=== PATIENT | female | born 1935 | race Caucasian/White ===

== ENCOUNTER 2019-12-19 10:44 | Inpatient (IN) | payer OTHER ==
[~2019-12-19] VITALS: Ht 157.5 cm; Wt 79.0 kg
[2019-12-19 11:15] LABS: BASOPHILS ABSOLUTE AUTO 0.05 K/mm3 (0.00-0.23); BASOPHILS PERCENT AUTO 0 % (0-2); EOSINOPHILS ABSOLUTE AUTO 0.08 K/mm3 (0.00-0.68); EOSINOPHILS PERCENT AUTO 1 % (0-6); Hematocrit 48.2 % (33.0-51.0); IMMATURE GRAN ABSOLUTE AUTO 0.06 K/mm3 (0.00-0.10); IMMATURE GRAN PERCENT AUTO 1 % (0-1); LYMPHOCYTES ABSOLUTE AUTO 2.09 K/mm3 (0.84-5.20); LYMPHOCYTES PERCENT AUTO 17 % (21-46); MONOCYTES ABSOLUTE AUTO 1.01 K/mm3 (0.16-1.47); MONOCYTES PERCENT AUTO 8 % (4-13); Mean Corpuscular HGB Conc 33.2 g/dL (31.5-36.5); Mean Corpuscular Volume 88 fL (80-100); Mean Platelet Volume 9.9 fL (9.1-12.4); NEUTROPHILS ABSOLUTE AUTO 8.93 K/mm3 (1.96-9.15); NEUTROPHILS PERCENT AUTO 73 % (41-73); Platelet Count 244 K/mm3 (150-400); RDW Coefficient Variation 11.9 % (11.7-14.2); RDW Standard Deviation 38.1 fL (35.1-46.3); Red Blood Cell Count 5.51 M/mm3 (3.80-5.20); White Blood Cell Count 12.22 K/mm3 (4.00-11.30)
[2019-12-19 11:29] LABS: Alanine Aminotransfer (ALT/SGP 17 U/L (12-78); Albumin, Blood 3.4 g/dL (3.4-5.0); Alk Phos 78 U/L (50-136); Anion Gap 5 mmol/L (6-16); Aspartate Aminotrans (AST/SGOT 17 U/L (12-37); Bilirubin, Total 0.7 mg/dL (0.1-1.0); Blood Urea Nitrogen 13 mg/dL (8-24); Bun/Creatinine Ratio 19.3 (12.0-20.0); CO2, Blood 29 mmol/L (21-32); Calcium, Blood 8.6 mg/dL (8.5-10.1); Chloride, Blood 99 mmol/L (98-108); Creatinine, Blood 0.67 mg/dL (0.40-1.00); Globulin, Blood 3.3 g/dL (2.2-4.0); Glomerular Filtration Rate >60 (60-); Glucose, Blood 117 mg/dL (70-99); Potassium, Blood 3.9 mmol/L (3.5-5.5); Sodium, Blood 133 mmol/L (136-145); Total Protein, Blood 6.7 g/dL (6.4-8.2)
[2019-12-19 11:30] LABS: Troponin I <0.015 ng/mL (0.000-0.040)
[2019-12-19 13:17] LABS: Adenovirus Not Detected (NOT DETECT); Coronavirus 229E Not Detected (NOT DETECT); Coronavirus HKU1 Not Detected (NOT DETECT); Coronavirus NL63 Not Detected (NOT DETECT); Coronavirus OC43 Not Detected (NOT DETECT)
[2019-12-19 13:18] LABS: Bordetella pertussis Not Detected (NOT DETECT); Chlamydophila pneumoniae Not Detected (NOT DETECT); Human Metapneumovirus Not Detected (NOT DETECT); Human Rhinovirus/Enterovirus Not Detected (NOT DETECT); Influenza A/2009-H1 Not Detected (NOT DETECT); Influenza A/H1 Not Detected (NOT DETECT); Influenza A/H3 Not Detected (NOT DETECT); Influenza B Not Detected (NOT DETECT); Mycoplasma pneumoniae Not Detected (NOT DETECT); Parainfluenza Virus 1 Not Detected (NOT DETECT); Parainfluenza Virus 2 Not Detected (NOT DETECT); Parainfluenza Virus 3 Not Detected (NOT DETECT); Parainfluenza Virus 4 Not Detected (NOT DETECT); Respiratory Syncytial Virus Not Detected (NOT DETECT)
[2019-12-19 15:01] LABS: PCO2 Arterial 53.5 mmHg (35-45); PO2 Arterial 53.1 mmHg (80-100); pH Blood Arterial 7.37 (7.35-7.45)
--- NOTE | 2019-12-19 20:10 | NUR ---
ASSUMED CARE. PAT IS AOX3, COOPERATIVE. GOT UP TO BATHROOM WITH SBA. VOIDED CLEAR YELLOW URINE. DENIED ANY DISCOMFORT WHILE URINATING. LUNG SOUNDS CLEAR IN UPPER LOBES DIMINISHED IN BASES, BUT DID HAVE SOME EXPIRTORY WHEEZING. COUGH IS NON-PRODUCTIVE AT THIS TIME. STATES THE OXYGEN DOES HELP HER BREATH A LITTLE MORE AT EASE. DYSPNEA ON EXERTION, RECOVER IS LESS THEN A MIN. NO PAIN NOTED. VS WITH ELEVATION IN BP DUE TO HER JUST GETTING UP TO THE BATHROOM. STATES SHE CAN RUN ON THE HIGH SIDE. WILL CONTINUE TO MONITOR. CALL LIGHT IN REACH.
--- NOTE | 2019-12-19 20:51 | NUR ---
Primary Care At 2050, this COMPUTER BUILDER rounded on 356. The patient was in no distress and was sittting up watching T.V. I asked her if she is okay and she responded with, "Everything is okay". During this shift nurse is primary care for this patient.
--- NOTE | 2019-12-19 21:59 | NUR ---
RT IN ROOM TO GIVE BREATHING TREATMENT. STATES PATIENT IS FEELING NAUSUATED. INFORMED PATIENT WILL BRING IN AFTER TREATMENT IS COMPLETED DUE TO WAIT TIME WITH R/O CORVID PATIENTS.
--- NOTE | 2019-12-19 22:05 | NUR ---
SPOKE TO SHRAVAN CARTAGENA, PAT'S POA. PAT GIVE PERMISSION. SHRAVAN STATES LUX HAS BEEN HAVING ISSUES OF SOB FOR A WHILE AND NEEDING OXYGEN BUT IS AFRAID OF HAVING IT. SHE FEELS ONCE SOMEONE GOES ON IT THEN THEY NEVER GET OFF. SHE JUST RECENTLY LOST HER AND SHRAVAN THINKS SHE IS VERY DEPRESSED. 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 SHRAVAN STATES LUX LIVES IN A 5TH WHEEL WITH STAIRS OUTSIDE AND INSIDE. SHE DOES HAVE HARD TIME GETTING UP THEM. SHE IS SUPPOSE TO MOVE INTO A HOUSE NEXT TO HER DAUGHTER BUT IT IS NOT READY YET AND THEY DON'T KNOW WHEN IT WILL BE. SHE IS REQUESTING FOR US TO DO A OXYGEN NEED EVALUATION, ALONG WITH FURNACE FITTER FOR HELP, AND POSSIBLE HOME HEALTH ON DISCHARGE. WILL PASS ON TO DAY SHIFT IN MORNING.
--- NOTE | 2019-12-19 23:30 | NUR ---
GAVE ZOFRAN EARLIER. SHE STATES IT HELPED FOR A WHILE BUT NOW SHE IS STILL FEELING IT THERE. GAVE SALTINES TO SEE IF IT HELPED. INSTRUCTED ABOUT SOLUMEDROL AND SIDE EFFECTS. ENCOURAGED HER TO CALL IF NAUSEA GETS TO BAD OR CRACKERS DONT HELP.
--- NOTE | 2019-12-20 02:55 | NUR ---
PATIENT SLEEPING WITH NO SIGNS OF DISTRESS, AWAKENS EASILY TO SOUND. CALL LIGHT IN REACH.
--- NOTE | 2019-12-20 04:49 | NUR ---
SHIFT SUMMARY: PAT'S RESPIRTORY STATUS HAS REMAINED STABLE TONIGHT. SATS HAVE REMAINED IN THE 90'S WITH 2 LITERS OF O2 VIA NC. SOB NOTED WITH EXERTION ONLY. COUGH IS NON-PRODUCTIVE. VS SHOW HYPERTENSION, RUNNING 160'S SBP AND 90-100'S FOR DBP. SHE REPORTS THIS HAS BEEN THE OCCATION LATLEY. ELISABETH ALSO CALLED THIS SHIFT ASKING FOR HOME OXYGEN EVAL SHE IS ALWAYS SOB AT HOME. SHE ALSO REPORTED DIFFICULTY WITH TAKING THE STAIRS, AND POSSIBLE NEED FOR HOME HEALTH ON DC. PAT AGREED WITH THIS INFORMATION. PAT REMAINED PAIN FREE. ENHANCED ISOLATION STILL IN PLACE. MEDS PER EMAR. NO ACUTE CHANGES THIS SHIFT. WILL REPORT OFF.
[2019-12-20 05:00] LABS: BASOPHILS PERCENT AUTO 0 % (0-2); EOSINOPHILS PERCENT AUTO 0 % (0-6); Hematocrit 45.8 % (33.0-51.0); Hemoglobin 14.8 g/dL (11.5-16.0); IMMATURE GRAN ABSOLUTE AUTO 0.04 K/mm3 (0.00-0.10); IMMATURE GRAN PERCENT AUTO 1 % (0-1); LYMPHOCYTES ABSOLUTE AUTO 0.41 K/mm3 (0.84-5.20); LYMPHOCYTES PERCENT AUTO 6 % (21-46); MONOCYTES ABSOLUTE AUTO 0.04 K/mm3 (0.16-1.47); MONOCYTES PERCENT AUTO 1 % (4-13); Mean Corpuscular HGB 28.4 pg (26.0-34.0); Mean Corpuscular HGB Conc 32.3 g/dL (31.5-36.5); Mean Corpuscular Volume 88 fL (80-100); Mean Platelet Volume 10.5 fL (9.1-12.4); NEUTROPHILS ABSOLUTE AUTO 6.29 K/mm3 (1.96-9.15); NEUTROPHILS PERCENT AUTO 93 % (41-73); Platelet Count 206 K/mm3 (150-400); RDW Coefficient Variation 11.9 % (11.7-14.2); RDW Standard Deviation 38.1 fL (35.1-46.3); Red Blood Cell Count 5.22 M/mm3 (3.80-5.20); White Blood Cell Count 6.78 K/mm3 (4.00-11.30)
[2019-12-20 05:17] LABS: Anion Gap 6 mmol/L (6-16); Blood Urea Nitrogen 20 mg/dL (8-24); Bun/Creatinine Ratio 27.7 (12.0-20.0); CO2, Blood 28 mmol/L (21-32); Calcium, Blood 8.9 mg/dL (8.5-10.1); Chloride, Blood 99 mmol/L (98-108); Creatinine, Blood 0.72 mg/dL (0.40-1.00); Glomerular Filtration Rate >60 (60-); Glucose, Blood 161 mg/dL (70-99); Magnesium, Blood 2.2 mg/dL (1.6-2.4); Potassium, Blood 4.2 mmol/L (3.5-5.5); Sodium, Blood 133 mmol/L (136-145)
--- NOTE | 2019-12-20 11:43 | NUR ---
Patient is sitting up in bed and alert. Patient tells me about her 's 5 days ago, about his life, about his laugh about his careers and about how he was as a father and (of 63 yrs). Patient talks about how she is doing in the grief process and about how her grown kids are handling things. I listen empathically, normalize patient's experience, reinforce helpful attitudes and practices and provide grief support. Patient responds well and shows signs of catharsis and increased peace. I will continue to remain available to patient and family.
[2019-12-20 18:48] LABS: BASOPHILS ABSOLUTE AUTO 0.01 K/mm3 (0.00-0.23); BASOPHILS PERCENT AUTO 0 % (0-2); EOSINOPHILS PERCENT AUTO 0 % (0-6); Hematocrit 46.3 % (33.0-51.0); Hemoglobin 15.5 g/dL (11.5-16.0); IMMATURE GRAN ABSOLUTE AUTO 0.07 K/mm3 (0.00-0.10); IMMATURE GRAN PERCENT AUTO 1 % (0-1); LYMPHOCYTES ABSOLUTE AUTO 0.49 K/mm3 (0.84-5.20); LYMPHOCYTES PERCENT AUTO 4 % (21-46); MONOCYTES ABSOLUTE AUTO 0.33 K/mm3 (0.16-1.47); MONOCYTES PERCENT AUTO 3 % (4-13); Mean Corpuscular HGB 29.4 pg (26.0-34.0); Mean Corpuscular HGB Conc 33.5 g/dL (31.5-36.5); Mean Corpuscular Volume 88 fL (80-100); Mean Platelet Volume 9.8 fL (9.1-12.4); NEUTROPHILS ABSOLUTE AUTO 12.32 K/mm3 (1.96-9.15); NEUTROPHILS PERCENT AUTO 93 % (41-73); Platelet Count 302 K/mm3 (150-400); RDW Coefficient Variation 11.9 % (11.7-14.2); RDW Standard Deviation 38.4 fL (35.1-46.3); Red Blood Cell Count 5.28 M/mm3 (3.80-5.20); White Blood Cell Count 13.22 K/mm3 (4.00-11.30)
--- NOTE | 2019-12-20 18:54 | NUR ---
PATIENT BEGAN C/O PAIN BETWEEN SHOULDER BLADES AND REPORTS INCREASED SOB. HR IN THE 140'S. DR. THORPE NOTIFED AND ORDERS RECEIVED FRO STAT TROPONO, LACTIC ACID, CMP, AND CBX. STAT ORDERS ALSO FOR A DOSE OG NITOGLYCERIN AND 324MG ASPIRIN. CHEST X-RAY AND EKG COMPLETED. PATIENT STATES PAIN IMPROVED WITH NITRO. IR METOPROLOL GIVEN TO CONTROL HR. PATIENT GIVEN A DOSE OF ATIVAN PER MD ORDER AND IS NOW CALM AND RESTING. CONITUES TO REPORT SOME MILD 3/10 CP, BUT REFUSES ANOTHER DOSE OF NITRO. AWAITING LAB RESULTS AND CHEST X-RAY REPORT. B/P STABLE AT 118/71. HR 137 ON TELEMETRY.
[2019-12-20 19:12] LABS: Alanine Aminotransfer (ALT/SGP 12 U/L (12-78); Albumin, Blood 3.5 g/dL (3.4-5.0); Albumin/Globulin Ratio 0.9 (0.8-1.8); Alk Phos 64 U/L (50-136); Anion Gap 8 mmol/L (6-16); Aspartate Aminotrans (AST/SGOT 14 U/L (12-37); Bilirubin, Total 0.4 mg/dL (0.1-1.0); Blood Urea Nitrogen 24 mg/dL (8-24); Bun/Creatinine Ratio 25.7 (12.0-20.0); CO2, Blood 25 mmol/L (21-32); Calcium, Blood 9.6 mg/dL (8.5-10.1); Chloride, Blood 97 mmol/L (98-108); Creatinine, Blood 0.93 mg/dL (0.40-1.00); Globulin, Blood 3.7 g/dL (2.2-4.0); Glomerular Filtration Rate >60 (60-); Glucose, Blood 154 mg/dL (70-99); Potassium, Blood 3.9 mmol/L (3.5-5.5); Sodium, Blood 130 mmol/L (136-145); Total Protein, Blood 7.2 g/dL (6.4-8.2); Troponin I 0.059 ng/mL (0.000-0.040)
--- NOTE | 2019-12-20 19:40 | NUR ---
ASSISTING YOEL LUNA WITH PATIENT. CALLED SHRAVAN HER POA. INFORMED HER OF THE SITUATION AND THAT SHE WILL BE TRANSFERRING TO PCU 7. SHE STATES SHE WILL CALL THE FAMILY. RECHECK OF VITALS SHOWED HER BP DOWN TO NORMAL LIMITS BUT HER HEART RATE IS STILL TACHYCARDIC RUNNING IN 130. SHE DID WAKE UP FOR A SECOND, INFORMED HER THAT WE ARE TRANSFERRING HER TO PCU, DUE TO HER LABS NOT BEING GOOD. SHE STATES SHE IS NOT FEELING WELL.
--- NOTE | 2019-12-20 20:55 | NUR ---
PAT IS RESTING IN ROOM, DOES AWAKEN WHEN SPOKEN TO BUT IS VERY TIRED. HR STILL RUNNING 120-130'S ON MONITOR. BLOOD PRESSURE IS STAYING DOWN IN THE 130-140'S RANGE. SHE DENIES ANY CURRENT CHEST PAIN. JUST STATES SHE DOES NOT FEEL GOOD. NOTIABLE SWELLING IN BLE. LUNG SOUNDS DIMINISHED WITH SLIGHT WHEEZE. SOB NOTED, BUT SATS ABOVE 90'S ON 3 LITERS. DECREASED DOWN TO 2 LITERS. AWAITING TO CALL REPORT TO PCU FOR TRANSFER.
--- NOTE | 2019-12-20 21:38 | NUR ---
NO CHANGE IN VITALS. REPORT CALLED TO PCU NURSE. WHILE ON PHONE WITH THE NURSE, OVERHEARD PAT TALKING TO SOMEONE IN THE ROOM. IT SOUNDED LIKE SHE WAS TALKING TO HER BELATED . STATING "I HEAR YOU HONEY, COME HERE." THERE WAS NO ONE IN THE ROOM. WENT TO ROOM AFTER AND SHE WAS PASSED OUT. NOT SURE IF SHE WAS TALKING IN HER SLEEP. WILL GET READY FOR TRANSFER.
--- NOTE | 2019-12-20 21:45 | NUR ---
PATIENT WAS AWAKE AND TALKING, BACK TO HER ALERT AND ORIENTED SELF. DID TALK ABOUT HER MISSING HER BUT STATED SHE IS NOT READY TILL SHE GETS THINGS FIXED WITH HER KIDS. ENCOURAGED HER TO CONTINUE TO TALK TO SPIRITUAL CARE. PATIENT TRANSFERRED TO PCU VIA WHEELCHAIR.
[2019-12-20 22:26] LABS: Source, Urine Clean Catch
[2019-12-20 22:29] LABS: Bilirubin, Urine Neg (Neg); Blood, Urine Neg (Neg); Glucose Qualitative, Urine Neg (Neg); Ketones, Urine Neg (Neg); Leukocyte Esterase, Urine 2+ (Neg); Nitrite, Urine Neg (Neg); Protein, Urine 1+ (Neg); Specific Gravity, Urine 1.015 (1.003-1.022); Urobilinogen, Urine NORM (Normal)
[2019-12-20 22:30] LABS: Appearance, Urine Clear (Clear); Color, Urine Yellow (P-Yellow)
[2019-12-20 22:37] LABS: Bacteria Mod /hpf; Hyaline Casts 25-50 /lpf (0-2); Red Blood Cells, Urine 0-2 /hpf (0-2); Squamous Epithelial Cells Few /hpf (Few)
--- NOTE | 2019-12-20 22:50 | NUR ---
ASSUMED CARE OF PATIENT AT APPROXIMATELY 2114 FROM OLIVIA Sanon RN. PATIENT ARRIVED TO UNIT VIA STRETCHER; SBA FROM MEDICAL TO PCU STRETCHER. PATIENT ALERT AND ORIENTED X4; DEPRESSED; RECENTLY LOST SPOUSE. PATIENT DENIES PAIN, NUMBNESS, TINGLING, DIZZINESS OR NAUSEA. NS AT 500ML/HR; SECOND BAG STARTED AFTER PER ORDER THEN 75ML/HR; LACTIC ACID DOWN TO 3.3. PATIENT SBA TO BEDSIDE COMMODE; NEEDED ASSISTANCE WITH ОЛЕГ CARE; WEARS PADS FOR INCONTINENCE AT TIMES; UA SENT. IV AZITHROMYCIN ORDRED; ELSA Fuentes RN WAS CALLING RHEA PEREZ; ASKED HER TO VERIFY PATIENT HAD PO THIS AM AND IF THEY WANTED IV GIVEN WELL; ORDERS NOT GIVE IV. NSR ON TELE; OXYGEN SATURATION ABOVE 90% ON 2LPM VIA NC. PATIENT CURRENTLY RESTING IN BED; CALL LIGHT IN REACH; BED IN LOWEST POSISTION; BED ALARM ON; WILL CONTINUE TO MONITOR AND ASSESS UNTIL END OF SHIFT.
--- NOTE | 2019-12-20 23:09 | NUR ---
PATIENT HAD 3.9 SEC PAUSE; ASYMPTOMATIC; BP STABLE; PATIENT WAS SLEEPING; REPORTS HE HAD PAUSES BEFORE. CARDIZEM GTT TITRATED DOWN TO 5ML/HR; AVERAGE HEART RATE LOW 100'S. WILL CONTINUE TO MONITOR AND ASSESS UNTIL END OF SHIFT.
[2019-12-21 00:46] LABS: BASOPHILS ABSOLUTE AUTO 0.02 K/mm3 (0.00-0.23); BASOPHILS PERCENT AUTO 0 % (0-2); EOSINOPHILS ABSOLUTE AUTO 0.01 K/mm3 (0.00-0.68); EOSINOPHILS PERCENT AUTO 0 % (0-6); Hematocrit 42.8 % (33.0-51.0); Hemoglobin 14.1 g/dL (11.5-16.0); IMMATURE GRAN ABSOLUTE AUTO 0.13 K/mm3 (0.00-0.10); IMMATURE GRAN PERCENT AUTO 1 % (0-1); LYMPHOCYTES ABSOLUTE AUTO 0.73 K/mm3 (0.84-5.20); LYMPHOCYTES PERCENT AUTO 4 % (21-46); MONOCYTES ABSOLUTE AUTO 0.41 K/mm3 (0.16-1.47); MONOCYTES PERCENT AUTO 3 % (4-13); Mean Corpuscular HGB 29.2 pg (26.0-34.0); Mean Corpuscular HGB Conc 32.9 g/dL (31.5-36.5); Mean Corpuscular Volume 89 fL (80-100); Mean Platelet Volume 9.6 fL (9.1-12.4); NEUTROPHILS ABSOLUTE AUTO 15.14 K/mm3 (1.96-9.15); NEUTROPHILS PERCENT AUTO 92 % (41-73); Platelet Count 240 K/mm3 (150-400); RDW Standard Deviation 38.9 fL (35.1-46.3); Red Blood Cell Count 4.83 M/mm3 (3.80-5.20); White Blood Cell Count 16.44 K/mm3 (4.00-11.30)
[2019-12-21 01:00] LABS: Bun/Creatinine Ratio 24.6 (12.0-20.0); Calcium, Blood 8.3 mg/dL (8.5-10.1); Creatinine, Blood 0.98 mg/dL (0.40-1.00); Potassium, Blood 4.7 mmol/L (3.5-5.5)
--- NOTE | 2019-12-21 06:57 | NUR ---
PATIENT SLEPT ABOUT NINE HOURS; IMPULSIVE; DOESNT USE CALL LIGHT; PULLED TWO IVS; THIRD PLACED. LACTIC DOWN TO 2.2; NS AT 75ML/HR. NO OTHER ACUTE CHANGES TO REPORT. FORGETFUL. WILL CONTINUE TO MONITOR AND ASSESS UNTIL END OF SHIFT.
--- NOTE | 2019-12-21 07:41 | NUR ---
ASSUMED PATIENT CARE. PATIENT RESTING COMFORTABLY IN BED, NO SIGNS OF ACUTE DISTRESS, WCTM.
--- NOTE | 2019-12-21 13:29 | NUR ---
Spiritual care visit conducted. Patient tells me about the events that happened just prior to her move to PCU. She talks about the emotional ride that it was for her but she did sleep very well last night. Patient shares about her family unit complications, about her and about her current support system. Patient is very talkative and very positive. She will talk about incredibly sad thoughts but balance them out with what is good about it. Some of this maybe self-protection but some of this is the kind of healthy self talk she will need going forward. I listen empathically and provide grief support, companionship and prayer. Patient responds well and shows signs of an elevated mood. I will continue to remain available to patient and family.
--- NOTE | 2019-12-21 18:53 | NUR ---
NO ACUTE EVENTS THIS SHIFT. PATIENT CONTINUED ON PO AND IV ABX. UA PENDING, POSSIBLE UTI. PATIENT DENIED CHEST PAIN/PRESSURE THIS SHIFT. NO WHEEZES NOTED THIS SHIFT, LUNG SOUNDS DIMINISHED T/0. IV FLUIDS DC'd THIS EVENING. PLAN IS TO CONTINUE TO TREAT FOR SEPSIS AND SUPPORT IMPROVEMENT IN RESPIRATORY FUNCTION.
--- NOTE | 2019-12-21 19:29 | NUR ---
RELINQUISHED PATIENT CARE.
--- NOTE | 2019-12-21 19:43 | NUR ---
UPDATE PATIENT REFUSING BLOOD PRESSURE MEDICATION AT THIS TIME STATING, "IT MADE ME FEEL FUNNY LAST TIME I HAD." PATIENT FEELING ANXIOUS AND SHORT OF BREATH AT THIS TIME. PATIENT HAS AGREED TO HAVE BLOOD PRESSURE RECHEKED ONCE SHE'S FEELING LESS ANXIOUS AND SHORT OF BREATH.
--- NOTE | 2019-12-22 00:21 | NUR ---
UPDATE NURSE PRACTIONER WANDA NOTIFIED OF PATIENT'S ELEVATED BLOOD PRESSURE AND PATIENT'S REFUSAL OF THE IV BLOOD PRESSURE MEDICATIONS. PATIENT ALSO REQUESTING SOMETHING TO HELP HER SLEEP. AN ORDER FOR BENADRYL OBTAINED FOR SLEEP. NURSE PRACTIONER WANDA STATED TO SIMPLY WATCH PATIENT'S BLOOD PRESSURE FOR NOW.
[2019-12-22 03:34] LABS: BASOPHILS ABSOLUTE AUTO 0.02 K/mm3 (0.00-0.23); BASOPHILS PERCENT AUTO 0 % (0-2); EOSINOPHILS PERCENT AUTO 0 % (0-6); Hematocrit 45.2 % (33.0-51.0); Hemoglobin 14.8 g/dL (11.5-16.0); IMMATURE GRAN ABSOLUTE AUTO 0.11 K/mm3 (0.00-0.10); IMMATURE GRAN PERCENT AUTO 1 % (0-1); LYMPHOCYTES ABSOLUTE AUTO 0.55 K/mm3 (0.84-5.20); LYMPHOCYTES PERCENT AUTO 3 % (21-46); MONOCYTES ABSOLUTE AUTO 0.46 K/mm3 (0.16-1.47); MONOCYTES PERCENT AUTO 3 % (4-13); Mean Corpuscular HGB 28.8 pg (26.0-34.0); Mean Corpuscular HGB Conc 32.7 g/dL (31.5-36.5); Mean Corpuscular Volume 88 fL (80-100); Mean Platelet Volume 9.9 fL (9.1-12.4); NEUTROPHILS ABSOLUTE AUTO 16.13 K/mm3 (1.96-9.15); NEUTROPHILS PERCENT AUTO 93 % (41-73); Platelet Count 296 K/mm3 (150-400); RDW Coefficient Variation 12.1 % (11.7-14.2); RDW Standard Deviation 39.5 fL (35.1-46.3); Red Blood Cell Count 5.13 M/mm3 (3.80-5.20); White Blood Cell Count 17.27 K/mm3 (4.00-11.30)
[2019-12-22 03:49] LABS: Anion Gap 5 mmol/L (6-16); Blood Urea Nitrogen 28 mg/dL (8-24); Bun/Creatinine Ratio 32.3 (12.0-20.0); CO2, Blood 28 mmol/L (21-32); Calcium, Blood 8.6 mg/dL (8.5-10.1); Chloride, Blood 101 mmol/L (98-108); Creatinine, Blood 0.87 mg/dL (0.40-1.00); Glomerular Filtration Rate >60 (60-); Glucose, Blood 144 mg/dL (70-99); Potassium, Blood 5.1 mmol/L (3.5-5.5); Sodium, Blood 134 mmol/L (136-145)
--- NOTE | 2019-12-22 04:31 | NUR ---
UPDATE LAB NOTIFIED STAFF THAT COVID RESULTS WERE NEGATIVE.
--- NOTE | 2019-12-22 04:46 | NUR ---
UPDATE PATIENT REPORTS FEELING VERY TIRED. PATIENT FINALLY IS ALLOWING STAFF TO PROVID IV BLOOD PRESSURE MEDICATIONS. PATIENT REPORTS SHE WAS HURTING ALL OVER BUT SHE IS FEELING BETTER NOW. HOWEVER, PATIENT DENIES HAVING ANY CHEST PAIN AT THIS TIME.
--- NOTE | 2019-12-22 05:35 | NUR ---
UPDATE EKG OBTAINED DUE TO PATIENT COMPLAINING OF SOB AND PAIN, "EVERYWHERE." NITRO GIVEN WITH MINIMAL RESULTS. PATIENT REPORTS, "I CAN'T TELL." WHEN ASKED IF SHE IS FEELING ANY BETTER. CHARGE NURSE PENELOPE GARCIA AND IN ROOM HELPING TO ASSESS PATIENT. RESPIRTORY THERAPIST ANNIKA IN ROOM ASSESSING PATIENT. PATIENT SITTING AT THE EDGE OF THE BED AND KEEPS STATING, "I HURT SO BAD." BUT PATIENT IS UNABLE TO EXPLAIN PAIN ANY FURTHER.
--- NOTE | 2019-12-22 05:52 | NUR ---
UPDATE PATIENT APPEARS MUCH MORE RELAXED AFTER BREATHING TREATMENTS. PATIENT NOW LAYING IN BED AND APPEARS TO BE FALLING ASLEEP. WILL CONTINUE TO MONITOR.
--- NOTE | 2019-12-22 06:52 | NUR ---
SHIFT SUMMARY PATIENT HAS APPEARED TO BE SLEEPING WELL HIS MORNING SINCE SHORTLY AFTER BREATHING TREATMENTS WERE GIVEN THIS MORNING. PATIENT CURRENTLY APPEARS TO BE COMFORTABLE AND SLEEPING IN BED, BEDSIDE REPORT GIVEN TO ONCOMING RN.
--- NOTE | 2019-12-22 08:48 | NUR ---
ASSUMED CARE - PCU DAYSHIFT PATIENT ORIENTED TO SELF BUT CONFUSED TO LOCATION AND SITUATION. PATIENT REORIENTED TO SITUATION AND LOCATION. PATIENT HAVING MOMENTS OF SELF CONFUSION SAY 'RAJI IS MY ' - AND THE PATIENT IS RAJI. PATIENT JUST LOST HER SPOUSE LAST WEEK HERE IN THE ER TO STROKE UNEXPECTEDLY. RESP LABORED AND UNEVEN AT REST; BIOX REMAINS 90-94% ON 3 LPM NC. LUNG SOUND COARSE TO WHEEZE. PATIENT EDUCATED TO COUGH AND DEEP BREATH. PATIENT SBA TO BEDSIDE COMMODE - TOELRATED WELL. CALL LIGHT AND BED ALARM.
--- NOTE | 2019-12-22 19:16 | NUR ---
PCU DAYSHIFT SUMMARY PATIENT ALERT AND ORIENTED T/O SHIFT AFTER INITIAL CONFUSION THIS AM (POSSIBLY RELATED TO MEDICATIONS). PATIENT DENIES ANY PAIN OR CHEST PRESSURE T/O SHIFT. RESP E/U AT REST BUT BREATHING BECOMES LABORED WITH ANXIETY - PATIENT ANXIOUS X2 THIS SHIFT - RELIEVED WITH NITRO AND BREATHING TREATMENTS. NOTIFIED MD SALMERON OF INCREASED TROPONIN AND ECHO RESULTS. CARDIOLOGY CONSULT CALLED - TANYA TO SEE PATIENT AND PATIENT TO HAVE [facility] SCAN TOMORROW WITH NO FURTHER ORDERS GIVEN. PATIENT ON 2-3 LPM NC. SBA TO COMMODE. CALL LIGHT W/I REACH AND BED ALARM ON. REPORT TO NOC SHIFT JEREMY ALFRED.
--- NOTE | 2019-12-23 05:40 | NUR ---
SHIFT SUMMARY PATIENT PLEASENT AND COOPERATIVE THROUGHOUT THE NIGHT. PATIENT SLIGHTLY ANXIOUS BUT HAS NOT HAD ANY EPISODES OF SEVERE ANXIETY WITH SHORTNESS OF BREATH TONIGHT. PATIENT APPEARED TO NAP ON AND OFF THROUGHOUT MOST OF THE NIGHT. VITAL SIGNS CHARTED. HIGH BLOOD PRESSURE TREATED PER ORDERS. WILL CONTINUE TO MONITOR PATIENT AND REPORT TO ONCOMING RN.
[2019-12-23 08:43] LABS: BASOPHILS ABSOLUTE AUTO 0.01 K/mm3 (0.00-0.23); BASOPHILS PERCENT AUTO 0 % (0-2); EOSINOPHILS PERCENT AUTO 0 % (0-6); Hematocrit 44.3 % (33.0-51.0); Hemoglobin 14.4 g/dL (11.5-16.0); IMMATURE GRAN ABSOLUTE AUTO 0.07 K/mm3 (0.00-0.10); IMMATURE GRAN PERCENT AUTO 1 % (0-1); LYMPHOCYTES PERCENT AUTO 7 % (21-46); MONOCYTES ABSOLUTE AUTO 0.98 K/mm3 (0.16-1.47); MONOCYTES PERCENT AUTO 8 % (4-13); Mean Corpuscular HGB 28.9 pg (26.0-34.0); Mean Corpuscular HGB Conc 32.5 g/dL (31.5-36.5); Mean Corpuscular Volume 89 fL (80-100); Mean Platelet Volume 9.7 fL (9.1-12.4); NEUTROPHILS ABSOLUTE AUTO 10.02 K/mm3 (1.96-9.15); NEUTROPHILS PERCENT AUTO 84 % (41-73); Platelet Count 289 K/mm3 (150-400); RDW Coefficient Variation 12.4 % (11.7-14.2); RDW Standard Deviation 40.4 fL (35.1-46.3); Red Blood Cell Count 4.98 M/mm3 (3.80-5.20); White Blood Cell Count 11.88 K/mm3 (4.00-11.30)
[2019-12-23 08:56] LABS: CHOL/HDL RATIO 2.4; Cholesterol 178 mg/dL (50-200); HDL Cholesterol 75 mg/dL (>39); LDL/HDL RATIO 1.2; Low Density Lipoprotein Chol 89 mg/dL (0-110); Magnesium, Blood 2.3 mg/dL (1.6-2.4); Triglycerides 69 mg/dL (30-160); Very Low Density Lipoprot Chol 13 mg/dL (6-32)
[2019-12-23 09:01] LABS: Alanine Aminotransfer (ALT/SGP 18 U/L (12-78); Alk Phos 66 U/L (50-136); Anion Gap 5 mmol/L (6-16); Aspartate Aminotrans (AST/SGOT 16 U/L (12-37); Bilirubin, Total 0.2 mg/dL (0.1-1.0); Blood Urea Nitrogen 28 mg/dL (8-24); Bun/Creatinine Ratio 36.8 (12.0-20.0); CO2, Blood 29 mmol/L (21-32); CPK Creatine Kinase 74 U/L (26-193); Calcium, Blood 8.6 mg/dL (8.5-10.1); Chloride, Blood 100 mmol/L (98-108); Creatinine, Blood 0.76 mg/dL (0.40-1.00); Glomerular Filtration Rate >60 (60-); Glucose, Blood 113 mg/dL (70-99); Potassium, Blood 5.1 mmol/L (3.5-5.5); Sodium, Blood 134 mmol/L (136-145)
--- NOTE | 2019-12-23 11:36 | NUR ---
SPOKE WITH PT'S KWAME CHENEY, UPDATED ON PT'S STATUS.
--- NOTE | 2019-12-23 18:17 | NUR ---
Initial spiritual care note: Mrs. Jordan told me about the very recent of her after he had a stroke. He in this facility. She was not with him "because it was too hard to see him that way, and he was already gone." He from massive stroke. She agress that this illness may have been exacerbated by grief. Her dtrs have been trying to get her to move in with one of them. She agrees this is a good idea. She is not fearful of and has a beleif in an afterlife. She is non-denominational. Mrs. Jordan responded well to emotional affirmation and gentle bereavement rehab/pre vocational counselor/education. I provided my contact information for rehab/pre vocational counselor and support in the future if she desired. [employer] will remain available.
--- NOTE | 2019-12-23 18:51 | NUR ---
SHIFT SUMMARY. A&OX4, PLEASANT AND COOPERATIVE WITH CARE, ASSIST TO BSC. PT CONTINUES WITH 2L O2 NC, REPORTS MILD DYSPNEA WITH EXERTION, RECOVERS QUICKLY. PT PAINFUL THIS MORNING 10/10, GENERALIZED ACHEING INCLUDING H/A, PT UNABLE TO LOCALIZE PAIN. DR. SALMERON NOTFIED, PT STARTED ON TRAMODOL WITH GOOD EFFECT. PT REPORTED PAIN WAS TOLERABLE THE REMAINING OF THE SHIFT. PT DENIES N/V. PT WITH IMPROVED MOOD THIS AFTERNOON. PT DID NOT TOLERATE LEXISCAN, PROCEDURE CANCELLED. PT CONTINUES TO BE HYPERTENSIVE.
--- NOTE | 2019-12-24 05:49 | NUR ---
SHIFT SUMMARY NO ACUTE CHANGES NOTED THROUGH THE NIGHT. PT C/O ONE EPISODE OF CHEST DISCOMFORT THROUGH THE NIGHT AFTER GETTING UP TO THE BATHROOM, NO EVENTS RECORDED ON TELE MONITOR, PT WAS RELIEVED AFTER RESTING AND 1 NITRO TABLET PER REQUEST. BP REMAINS ELEVATED. GENERALIZED PAIN MEDICATED WITH PO ULTRAM PER EMAR. O2 VIA NC @ 2 L. PT'S NITANIKA CHENEY WAS UPDATED VIA TELEPHONE PER PT REQUEST. CALL LIGHT IN REACH. [facility]
--- NOTE | 2019-12-24 18:16 | NUR ---
SHIFT SUMMARY NO ACUTE CHANGES THROUGHOUT SHIFT. PT REMAINED ALERT & ORIENTED, COOPERATIVE W/ CARE. PT SLEPT FOR MOST OF THE DAY, BUT DID HAVE SOME PERIODS OF INCREASED ANXIETY. REMAINS ON 2L O2 VIA NC, PULSE OX >90%. PT STILL W/ SOB ON MINIMAL EXERTION, BUT RECOVERS QUICKLY. PT C/O GENERALIZED PAIN, BUT DENIED NEED FOR PAIN MEDS WHEN OFFERED, STATES PAIN IS TOLERABLE. PT DENIED ANY C/O CHEST PAIN/PRESSURE THIS SHIFT. HTN STILL PRESENT W/ BP AVERAGING IN THE 160'S. PT CURRENTLY RESTING IN BED, LOOKS OVERALL UNCOMFORTABLE, BUT STATES SHE HAS NO NEEDS AT THIS TIME. STATUS CHANGED TODAY TO MED W/ TELE. BED LOCKED & IN LOWEST POSITION, CALL MILIAN W/ IN REACH, BED ALARM ON FOR PT SAFETY. WILL CONTINUE TO MONITOR UNTIL END OF SHIFT.
--- NOTE | 2019-12-25 06:26 | NUR ---
SHIFT SUMMARY PT HAS BEEN SLEEPY & WITHDRAWN THROUGH THE NIGHT. SHE STATES SHE DID NOT HAVE A GOOD DAY AND STATES SHE DOES NOT KNOW IF SHE "FEELS BETTER OR NOT". PT WAS ENC TO VOICE ANY CONCERNS BUT SHE DID NOT. HOSPITALIST WAS NOTIFIED OF ELEVATED BP AFTER 1 DOSE OF IV LOPRESSOR, HYDRALIZINE WAS ORDERED & GIVEN. O2 REMAINS @ 2.5 L VIA NC, LUNGS ARE DIMINISHED THROUGH OUT. CALL LIGHT IN REACH, WCTM
--- NOTE | 2019-12-25 12:38 | NUR ---
TRANSFER NOTE PT REMAINED ALERT & ORIENTED THROUGHOUT SHIFT, BUT IS VERY DOWN & DEPRESSED TODAY. PT STATES, "I'M OVER ALL OF THIS. I CAN'T TELL YOU HOW DEPRESSED I AM." DR. VILLAFANA WAS IN EARLIER TO SPEAK W/ PT & IS AWARE OF MENTAL STATE. PALLIATIVE CARE IS CONSULTED; THIS RN SPOKE W/ LEVI FROM PALLIATIVE & UPDATED HER ON PT'S SITUATION, STATES SHE WILL TRY TO COME SEE PT TODAY. BP HAS REMAINED ELEVATED OVERNIGHT & THROUGHOUT SHIFT; MD CHANGED AROUND PO MEDICATIONS THIS MORNING, BUT NO IMPROVEMENT. IV HYDRALAZINE WAS ADMINISTERED; MOST RECENT BP READING 172/92. IV LOPRESSOR WAS GIVEN PRIOR TO PT TRANSFER. CLARIFIED W/ DR. VILLAFANA IF HE WOULD LIKE TO KEEP PT MED/TELE STATUS OR CHANGE TO PCU; MD STATES OKAY FOR PT TO STAY MED/TELE STATUS EVEN W/ CONTINUED HTN. PULSE OX HAS REMAINED > 92% ON O2 VIA NC @ 2 LPM. PT STILL W/ SOB UPON MINIMAL EXERTION. REPORT WAS CALLED TO JEREMY QUINTANA ON SURGICAL FLOOR. PT WAS TRANSPORTED OFF UNIT W/ ALL BELONGINGS TO RM 226. PT'S NIECE SHRAVAN WAS UPDATED ON PT'S CONDITION & TRANSFER.
--- NOTE | 2019-12-25 12:41 | NUR ---
TRANSFER PCU TRANSFER TO 226. PT ALERT AND ORIENTED, BUT SEEMS DEPRESSED. PT REPORTS RECENTLY . PALLIATIVE CARE NOTIFIED BY ASSISTANT COUNTY ATTORNEY TO COME VISIT PT TODAY. PT REPORTS SHE "ALWAYS" HAS SHORTNESS OF BREATH AND THAT IT WORSENS WITH EXERTION. CURRENTLY ON 2L VIA NC. PT UP WITH 1 MIN SBA TO BSC. PT WAS MODERATELY DISTRESSED AND SOB, BUT QUICKLY RECOVERED WITH FOCUSED AND DEEP BREATHING. PT IS SITTING IN TRIPOD POSITION IN BED WHICH SHE REPORTS IS THE MOST COMFORTABLE POSITION FOR HER CURRENTLY. TELE IN PLACE RUNNING SR. IV IS SL. ORIENTED TO ROOM AND UNIT. PT USES CALL LIGHT APPROPRIATELY AND CALL LIGHT WITHIN REACH.
--- NOTE | 2019-12-25 16:14 | NUR ---
SHIFT SUMMARY NO ACUTE CHANGES SINCE ARRIVING TO UNIT. PT STILL HYPERTENSIVE. GIVING PO MEDS, HYDRALAZINE, AND LOPRESSOR PER ORDERS. ON 2L VIA NC. 1 MIN SBA TO BSC. MODERATE SOB WITH EXERTION. USES CALL LIGHT APPROPRIATELY.
--- NOTE | 2019-12-26 05:50 | NUR ---
SHIFT SUMMARY PT RESTED INFREQUENTLY T/O NIGHT. AAOX4/ANXIOUS AT TIMES. PT DENIES DISCOMFORT/NAUSEA THIS SHIFT. LUNG SOUNDS DIMINISHED WITH FINE CRACKLES IN BASES. 3L VIA NC AT THIS TIME. INCREASED SOB WHEN UP TO BSC. ANXIETY DECREASED WITH 1MG IV ATIVAN. ELEVATED BP CONTINUES. NO ACUTE CHANGES OVER NIGHT. PT CURRENTLY RESTING IN BED WITH CALL LIGHT IN REACH.
[2019-12-26 08:23] LABS: Hematocrit 40.9 % (33.0-51.0); Hemoglobin 14.1 g/dL (11.5-16.0)
[2019-12-26 08:38] LABS: Anion Gap 6 mmol/L (6-16); Blood Urea Nitrogen 26 mg/dL (8-24); Bun/Creatinine Ratio 59.4 (12.0-20.0); CO2, Blood 33 mmol/L (21-32); Calcium, Blood 8.3 mg/dL (8.5-10.1); Chloride, Blood 86 mmol/L (98-108); Creatinine, Blood 0.44 mg/dL (0.40-1.00); Glomerular Filtration Rate >60 (60-); Glucose, Blood 119 mg/dL (70-99); Potassium, Blood 3.9 mmol/L (3.5-5.5); Sodium, Blood 125 mmol/L (136-145)
[2019-12-26 12:03] LABS: Osmolality, Urine 834 mos/kg (15-1400)
[2019-12-26 13:00] LABS: Sodium, Urine, Random 39 mmol/L (20-110)
--- NOTE | 2019-12-26 16:20 | NUR ---
OT ENTERED ROOM TO FIND PT TALKING/CONFUSED. VSS. PT KEEPING EYES CLOSED, REFUSING TO WORK W/OT. DIFFICULT TO UNDERSTAND, HAVING DIFFICULTY FOLLOWING DIRECTIONS. STATED DID NOT KNOW WHERE SHE WAS, STATED VERY TIRED. REPORTED COLD, PROVIDED WARM BLANKET. OT TRANSFERRED PT BACK TO BED, BED ALARM TO SET TO MEDIUM SENSITIVITY. VSS.
--- NOTE | 2019-12-26 16:36 | NUR ---
DISCUSSED CHANGE IN MENTATION W/DR VILLAFANA. ORDERS FORTHCOMING.
[2019-12-26 17:26] LABS: Base Excess Venous 9.7 mmol/L; Bicarbonate Venous 31.4 mmol/L (24.0-30.0); PO2 Venous 82.9 mmHg (38-42); pH Blood Venous 7.39 (7.34-7.37)
--- NOTE | 2019-12-26 18:13 | NUR ---
SUMMARY PT WAS COOPERATIVE AND ALERT FIRST HALF THE SHIFT. IN THE AFTERNOON, PT BECAME VERY LETHARGIC, COULDNT STATE WHERE SHE WAS, COULDNT WORK W/OT, UNABLE TO STATE DATE OF . NOTIFIED DR VILLAFANA AND VBG WAS OBTAINED. THIS EVENING, PT IS SLIGHTLY MORE ALERT, SPOKE TO FRIEND ON PHONE AND TOOK COREG PER ORDERS. SITTING IN TRIPOD POSITION IN BED. BED ALARM ON. REPORTED VBG TO DR VILLAFANA; NO NEW ORDERS AT THIS TIME. CALL LIGHT IN REACH.
--- NOTE | 2019-12-26 21:30 | NUR ---
SPOKE TO SHRAVAN, PT'S POA AND UPDATE GIVEN. SHRAVAN SPOKE ABOUT PT GOING TO LIVE IN AN APARTMENT AFTER D/C FROM HOSPITAL. SHE STATED THAT IT WAS ARRANGED THAT PT'S DAUGHTER WAS TO MOVE IN WITH HER AND HELP HER OUT AND THAT SHE WILL BE PLACED ON HOSPICE. DENIES FURTHER NEEDS OR WANTS AT THIS TIME. SAFETY MEASURES IN PLACE. WILL CONTINUE TO MONITOR.
--- NOTE | 2019-12-27 04:44 | NUR ---
SHIFT SUMMARY SITTING UP IN BED WHILE WATCHING TV. ASKED NURSING TO PLUG CELL PHONE INTO COOLER CONVEYOR LOADER. RESTED IN TRIPOD POSITION ENTIRE SHIFT, REFUSED OFFERS TO REPOSITION. STATES THAT SHE IS COMFORTABLE AT THIS TIME. IS STILL AAO X3, NO CONFUSION NOTED THIS SHIFT. DENIES FURTHER NEEDS OR WANTS AT THIS TIME. SAFETY MEASURES IN PLACE. WILL GIVE HAND OFF TO ONCOMING SHIFT USING SBAR DURING BEDSIDE REPORT.
[2019-12-27 05:08] LABS: Anion Gap 5 mmol/L (6-16); Blood Urea Nitrogen 27 mg/dL (8-24); Bun/Creatinine Ratio 56.1 (12.0-20.0); CO2, Blood 35 mmol/L (21-32); Calcium, Blood 8.2 mg/dL (8.5-10.1); Chloride, Blood 85 mmol/L (98-108); Creatinine, Blood 0.48 mg/dL (0.40-1.00); Glomerular Filtration Rate >60 (60-); Glucose, Blood 112 mg/dL (70-99); Potassium, Blood 3.8 mmol/L (3.5-5.5); Sodium, Blood 125 mmol/L (136-145)
[2019-12-27 05:12] LABS: Thyroid Stimulating Hormone 0.414 uIU/mL (0.360-4.800)
--- NOTE | 2019-12-27 10:44 | NUR ---
Met with health care marketing specialist and then with tammie. Pt up in chair, moderate affect. pt is known to this video games storywriter from discussing end of life care with her for her . Pt ate about 25% Affect is anxious and respirations are slightly labored with accessory use and guarding. pt denies headache or ringinging in ears no stomitsis noted denies any difficulty swallowing. denies chest pain or aching or sorness to back joints and neck. no nausea or consitation. pt feels anxious. Slow careful conversation about care. pt states family is helping her with plan and hospice is coming to see her. We reviewed hospice care and how it could help her. Reviewed that if she improved she could come off hospice. She is flat and apathetic and distruaght. Her known history has been of very limited activity and her and family made most of her decisions. Review of pt notes and nursing notes pt kps score is 30%. Review of cardiac notes. Spoke with Crystal her family memeber and retired nurse. She is not POA. She is the family consultant and patients children rely on her knowledge to help with plan of care. They plan on having margarita francis sign POA for financials and medical so she can set her mother up in an apartment near them and take turns living with her. They are colaborative in their decision making for medical care. Daughter will be in today to sign POA and get notary. Revied with health care marketing specialist to get hospice referal update on who is available. Pt may not need to transition to comfort care as an inpatient. Will review with physician to see if we can optimize carediac function and care while here. She would benefit from some very low dose roxinol for air hunger and burder of ventilation. Review of plan with Crystal and she agrees. She feels if she worsens comfort care would be good. Will meet with daughter today and update hospitalist and request meds. Suggest change ativan to 12 hours and add minimal dose roxinaol for air hunger. Will attemt polst when family arrives.
--- NOTE | 2019-12-27 11:09 | NUR ---
PT VERY ANXIOUS. ASKED FOR ANXIETY MEDS. ATTEMPTED TO TALK TO PT TO CALM DOWN AND REQUESTED RT TO ADMINISTER INHALER FOR PRN SOB. PT REFUSED INHALER, STATING NEEDED SOMETHING FOR ANXIETY. ADMINISTERED 0.25 MG IV ATIVAN PER CLINICAL JUDGMENT. PLAN IN PLACE TO SIGN LEGAL DOCUMENTS WITH FAMILY MEMBER AT 12:30.
--- NOTE | 2019-12-27 11:50 | NUR ---
PT REPORTED FEELING DISTRESSED ATTEMPTED TO COMFORT AND REASSURE. PT WANTED FRIEND, SHRAVAN, TO BE CALLED AND INFORMED HOW PT FELT. UPDATED SHRAVAN PER PT'S REQUEST. PT SITTING UP IN CHAIR. CALL LIGHT IN REACH. CHAIR ALARM ON.
--- NOTE | 2019-12-27 12:35 | NUR ---
pt with daughter having productive conversation. notary in to help sign POA.
--- NOTE | 2019-12-27 14:39 | NUR ---
Review of orders with nursing. Met with daughter and did polst. pt is DNR with limited treatment. We agreed on limited to allow care for her needs while in hospital. Advised we can change to comfort only or hospice can. Pt very fatigued after encounter with daughter and more short of breath . nursing gave prn meds. Advised daughter plan is home with hospice. We also discussed that although she is not showing signs of transtion or being emeinent she is grieving and distraught and she may progress and change. Daughter thinks she is doing that now and is going to advise family of her changes. The hope is to get her to her new home and have family near her.
--- NOTE | 2019-12-27 17:24 | NUR ---
SUMMARY PT'S DAUGHTER AT BEDSIDE. PT SIGNED PAPERS TO MAKE DAUGHTER POA. PLAN TO DC TO HOSPICE. MEDICATED ONCE DURING SHIFT FOR ANXIETY. MEDICATED ONCE PER ORDERS FOR PAIN/AIR HUNGER. PT WEAK, TWO PERSON TRANSFER. CURRENTLY SLEEPING IN BED. PT FREQUENTLY SITS IN TRIPOD POSITION FOR COMFORT. CALL LIGHT IN REACH.
--- NOTE | 2019-12-27 18:50 | NUR ---
PT SITTING FORWARD IN BED. APPEARED SOB. DROWSY AND NOT ABLE TO SIT UP AND TAKE PO PAIN MEDS SAFELY. ADMINISTERED ROXANOL PER ORDERS FOR AIR HUNGER.
--- NOTE | 2019-12-27 23:00 | NUR ---
RECEIVED HAND OFF FROM Charlotte ANN RN USING SBAR. LEANING FORWARD INTO A PILLOW WHILE IN TRIPOD POSITION WITH EYES CLOSED. WAKES WHEN TOUCHED AND IS COOPERATIVE WITH CARE. DENIES FURTHER NEEDS AT THIS TIME. SAFETY MEASURES IN PLACE. WILL CONTINUE TO MONITOR.
--- NOTE | 2019-12-28 04:15 | NUR ---
SHIFT SUMMARY LYING IN SEMI FOWLERS WITH EYES CLOSED. SPORTS JOURNALIST AT BEDSIDE CALLING PT'S NAME, WITH NO RESPONSE FROM PT. UNRESPONSIVE TO VERBAL OR PAINFUL STIMULI. SLUGGISH PUPILARY MOVEMENTS. RESPIRATIONS SHALLOW & GASPING AT 16. O2 SAT 87 ON 2L/NC. INCREASED TO 4L/NC, O2 SAT INCREASED TO 95%. O2 DECREASED TO 3L/NC, SAT NOTED AT 92%. CAP REFILL IS <3 SEC. TELE SHOWS SB IN THE 50'S. SAFETY MEASURES IN PLACE. WILL CONTIUE TO MONITOR AND GIVE ONCOMING SHIFT RESPORT AT BEDSIDE USING SBAR.
[2019-12-28 08:24] LABS: Anion Gap 3 mmol/L (6-16); Blood Urea Nitrogen 40 mg/dL (8-24); Bun/Creatinine Ratio 58.8 (12.0-20.0); CO2, Blood 39 mmol/L (21-32); Calcium, Blood 8.3 mg/dL (8.5-10.1); Chloride, Blood 84 mmol/L (98-108); Creatinine, Blood 0.68 mg/dL (0.40-1.00); Glomerular Filtration Rate >60 (60-); Glucose, Blood 115 mg/dL (70-99); Potassium, Blood 4.1 mmol/L (3.5-5.5); Sodium, Blood 126 mmol/L (136-145)
--- NOTE | 2019-12-28 11:32 | NUR ---
Spiritual care visit conducted. Patient is sitting up in bed and hutched over but alert. Patient tells me that she is glad to see me and that she is not doing well. I ask if she is referring to her medical issues or emotionally and she says, "Both. " I ask her if she can explain what she means and she says, "I just want to go home and I can't." Patient talks about her daughters and that they are doing ok but miss her. Patient speaks in short sentences and is quiet which is quite different than a few days ago when she was very talkative and maintained a great sense of humor even in the midst of loss and discomfort. I listen empathically and provide compnaionship, emotional support and prayer. Patient voices appreciation for my visit. I will continue to remain available to patient and family.
--- NOTE | 2019-12-28 11:36 | NUR ---
Pal Care visit: Returned to assess s/s and have my first visit with pt. Prior to my visit I spoke with the Manager Film who had visited this am and to pt's RN. She reports that pt s/s improved with dose of ativan. RN states pt remains in the tripod position but has been sleeping now. Manager Film reports that the pt has declined significantly since he last saw her a few days ago. Visit to pt who is partially leaning back but trying to move around in bed. I Assisted her to position of comfort again, which was her usual tripod position. She mumbled but was not conversant. She appears half awake, half asleep at this time. Plan for Pal Care nurse who has worked with family to update them and discuss initiating comfort care measures prior to d/c if all in agreement.
--- NOTE | 2019-12-28 12:20 | NUR ---
PT DECLINE PT APPEARS TO BE DECLINING. PT IS NONRESPONSIVE TO VERBAL STIMULI. PT WITH IRREGULAR BREATHING, GASPING AT TIMES, O2 STILL APPLIED. PT CONT TO BE COOL TO THE TOUCH. CALLED DAUGHTER/POA TO DISCUSS CHANGES. DAUGHTER STATES SHE WILL COME TO BEDSIDE AND PREFERS END OF LIFE TO BE A SMOOTH TRANSITION.
--- NOTE | 2019-12-28 12:55 | NUR ---
REPOSITIONED IN THE TRIPOD POSITION FOR PT COMFORT. PILLOWS UNDER ARMS AND TOWEL ROLLED UNDER NECK TO KEEP HEAD PROPPED UP.
--- NOTE | 2019-12-28 14:24 | NUR ---
TELE BOX RETURNED TO PCU.
--- NOTE | 2019-12-28 14:36 | NUR ---
DAUGHTER GRACIE AT BEDSIDE. EXPLAINED TO GRACIE WHAT COMFORT CARE MEANS AND WHATINTERVENTIONS HAVE BEEN DONE. DOOR CLOSED FOR PRIVACY.
--- NOTE | 2019-12-28 16:10 | NUR ---
Spiritual care note: Met with Pat's dtr, Lisa, at bedside. she was tearful and rather quiet. She spoke about her appreciaition for her mom and her wish for a peaceful passing. Provided encouragement and prayer. Pat appeared to be sleeping comfortably and did not awaken. Human Resource Advisor services will remain available.
--- NOTE | 2019-12-28 16:35 | NUR ---
SHIFT SUMMARY COMFORT ORDERS IN PLACE. PT RECEIVING 5MG ORAL ROXANOL PRN + ORAL ATROPINE DROPS FOR SECRETIONS PRN. DIMAS CATH PLACED FOR COMFORT PT UNABLE TO VOID. REPOSITIONING TOLERATED. PT FREQUENTLY SITS IN TRIPOD POSITION. 3L O2 VIA NC IN PLACE FOR COMFORT. PT IS MOSTLY NONVERBAL AND MOANS OCCASSIONALLY. FAMILY MEMBERS ROTATING TURNS TO BE AT BEDSIDE. CALL LIGHT WITHIN REACH.
--- NOTE | 2019-12-28 18:31 | NUR ---
Multiple visits today. pt transitioned to hospice care. Pt tripoding more and more burden of ventilation. multiple visits to pt and updates with family. increased use of roxinaol with improved ventilation and comfort. pt had periods of aggitation, oders for prn bladderscan pt retaining urine . Impoved comfort and reduced aggitain with ghosh catheter. pt progressing may not tolerate transfer to home. Will revaluate tomorrow, asked chaplian to see daughters for support.
--- NOTE | 2019-12-29 04:21 | NUR ---
SHIFT SUMMARY PT RESTED WELL T/O NIGHT. DROWSY/UNRESPONSIVE TO VERBAL OR PHYSICAL STIMULI. TURNED Q2H. COMFORT CARE. FAMILY MEMBER IN TO SEE PT YESTARDAY EVENING. NO ACUTE CHANGES OVER NIGHT. BED ALARM ON FOR SAFETY. CALL LIGHT WITHIN REACH.
--- NOTE | 2019-12-29 08:19 | NUR ---
MORNING ASSESSMENT PT APPEARS TO BE RESTING COMFORTABLY. RESPIRATIONS ARE EVEN AND UNLABORED, PT TAKING SHALLOW BREATHS WITH MOUTH OPEN. DROOLING AT THE SIDE OF THE MOUTH. ORAL CARE PROVIDED AND ATROPINE DROPS GIVEN PER ORDERS FOR SECRETIONS. 3L O2 ON FOR COMFORT. ALL EXTREMITIES ELEVATED ON PILLOWS. REPOSITIONING Q2H. ALL EXTREMITIES COOL THE TOUCH AND DUSKY IN COLOR. DIMAS CATH IN FOR COMFORT WITH SCANT AMOUNT OF CLEAR YELLOW URINE. FAN ON AT BEDSIDE. LIGHTS OFF IN ROOM. CALL LIGHT WITHIN REACH. PT DOES NOT WAKE WITH VERBAL STIMULI OR TOUCH.
--- NOTE | 2019-12-29 15:00 | NUR ---
Spiriutal care visit conducted. Provided therapeutic guitar playing while patient rested and is not responding to voice during visit.
--- NOTE | 2019-12-29 15:22 | NUR ---
DAUGHTER AT BESIDE.
--- NOTE | 2019-12-29 16:34 | NUR ---
Routine spiritual care note: Mrs. Jordan was alone in room and non-responsive to voice/touch. I provided presence, comfort through touch, and prayer at bedside. She appears comfortable and well cared-for by nursing. Neurological Physiotherapist Services will remain available.
--- NOTE | 2019-12-29 16:37 | NUR ---
SHIFT SUMMARY PT HAS RESTED WELL T/O SHIFT. REPOSITIONING Q2-3H. 5MG ROXANOL GIVEN PER ORDERS, BUT PLAN TO INCREASE DOSE TO 10MG PER PALLIATIVE CARE RECOMMENDATIONS PT APPEARS TO BE TRANSITIONING. SCOPALAMINE PATCH PLACED BEHIND R EAR FOR SECRETIONS ATROPINE DROPS NOT SUFFICIENT. DIMAS IN PLACE FOR COMFORT WITH CLEAR YELLOW URINE. IV DC'D FOR COMFORT. PT DOES OPEN EYES OCCASSIONALLY WHEN STAFF REPOSITIONS HER, BUT OTHERWISE IS NONVERBAL AND DOES NOT RESPOND TO STIMULI. DAUGHTER PRESENT AT BEDSIDE THIS EVENING. CALL LIGHT WITHIN REACH.
--- NOTE | 2019-12-29 16:55 | NUR ---
PT GIVEN AN ADDITIONAL 5MG ROXANOL + ATIVAN PER PALLIATIVE CARE RECOMMENDATIONS. PT STARTING TO APPEAR MILDLY ANXIOUS AND UNCOMFORTABLE. DAUGHTER IS HOLDING PT'S HAND AT BEDSIDE.
--- NOTE | 2019-12-29 20:24 | NUR ---
Multiple visits today for symptom manamgenet. pt progressing requiring more secretion control and roxinol. Multiple updates to her family. Daughter came in today. pt is progressing respitory patterns changing.
--- NOTE | 2019-12-30 05:11 | NUR ---
SHIFT SUMMARY PT CONTINUES TO REST COMFORTABLY IN BED. COMFORT CARE. TURN Q2H TOLERATED. DAUGHTER AT BEDSIDE T/O NIGHT. ROXANOL + ATROPINE GIVEN PER ORDERS. ATIVAN ORDER CHANGED TO HELP DECREASE INTERMITTENT AGITATION, GIVEN X1 THIS SHIFT. NO ACUTE CHANGES OVER NIGHT. PT NOW RESTING IN BED, WITH NO S/S DISTRESS. CALL LIGHT WITHIN DAUTHER'S REACH FOR ASSISTANCE.
--- NOTE | 2019-12-30 09:38 | NUR ---
PTS DAUGHTER, LUKAS, DECLINES PT BEING TURNED OR REPOSITIONED AT THIS TIME STASTES HER MOTHER APPEARS COMFORTABLE. DISCUSSED WITH LUKAS RISK OF PRESSRE SORES IF NOT TURNED OR REPOSITIONED AT LEAST EVERY 2 HOURS
--- NOTE | 2019-12-30 09:41 | NUR ---
PER PATIENTS DAUGHTER, LUKAS SHE WOULD LIKE HER MOTHER TO RECEIVE ATROPINE AND ROXANOL AT THIS TIME. PER LUKAS PATIENT BECAME SOB AND AGITATED AT TIMES DURING THE NOC AND SHE WOULD LIKE MEDS TO BE GIVEN MORE FREQUENTLY. LUKAS WOILL CALL WHEN SHE FEELS MEDS ARE NEEDED. PT DECLINES HER MOTHER BE REPOSITIONED AT THIS TIME
--- NOTE | 2019-12-30 10:33 | NUR ---
PTS DAUGHTER TELLS ME SHE IS LEAVING HOSPITAL FOR A BIT. DECLINES PT BE REPOSITIONED AT THIS TIME SHE FEELS SHE IS RESTING COMFORTABLY AND DOES NOT WANT HER TO BE DISTURBED
--- NOTE | 2019-12-30 11:02 | NUR ---
PT CALM PER DAUGHTERS EAREQUEST ATIVAN GIVEN
--- NOTE | 2019-12-30 13:03 | NUR ---
AMALIA MUSIC BEING PLAYED IN PATIENT ROOM BY WILSON GODFREY
--- NOTE | 2019-12-30 13:31 | NUR ---
Spiritual care visit conducted. Patient is lying in bed unresponsive to voice. I provide prayer, scripture reading and inspirational guitar music to aide in comfort, restfulness and the company of a calming presence. Patient shows little change but looks comfortable and with no signs of distress. I will continue to remain available to patient and family.
--- NOTE | 2019-12-30 15:47 | NUR ---
multiple visits for symptom control and updates to family. pt slowly and steadily progressing. proably would not tolerate transfer.
--- NOTE | 2019-12-30 17:53 | NUR ---
1700 resp rate 8, unlabored, extremities pale and cool. spoke with heri sim rn, palliative care . heri at bedside to see patient. exygen removed. heri spoke with patients daughter, penny, to update her on pt statue
--- NOTE | 2019-12-30 17:55 | NUR ---
summary pt with slow unlabored respirations at rate of 8. RN at bedside holding patients hand
--- NOTE | 2019-12-30 18:00 | NUR ---
extetnisve conversation with pt daughter penny. She feels she cannot come in tonight and watch her mother pass. Theraputic supportive converstion over anticipatory giref. mostly listened and affirmed her feeling. pt continues to progress. Repiration are shallow with more pauses oxygen removed and therputic time with pt talking to her. symptoms well managed no distress noted. pupil are fixed and non responsive no reponse to turning or stimulus.
--- NOTE | 2019-12-31 00:29 | NUR ---
HAVE SPOKEN WITH DAUGHTER AND NURSE FRIEND WHO HAS PERMIT TO GET INFO.PT HAS HAD NO APPEARANCE OF DISCOMFORT WITH MINIMAL RESPONSES OTHER THAN DID CLOSE LIPS ON SWAB BOTH TIMES THAT I SWABBED HER MOUTH.
--- NOTE | 2019-12-31 02:36 | NUR ---
PT CONTINUES WITH NO SIGNS OF PAIN PER DAY RN REPORT AND CONFIRMED WITH DAUGHTER, THEY DO NOT WISH PT TURNED THIS SEEMS TO BOTHER HER AND MAKE HER MORE UNCOMFORTABLE.
--- NOTE | 2019-12-31 08:12 | NUR ---
PT 809.
--- NOTE | 2019-12-31 08:17 | NUR ---
DORENE NOTIFIED SHRAVAN, FAMILY FRIEND OF PT'S PASSING. SHRAVAN TO NOTIFY FAMILY PER FAMILY'S PREFERENCE. FAMILY REQUESTS ALL BELONGINGS TO BE SENT TO HOME W/PATIENT.
== END 2019-12-31 09:25 | DRG 871 ==
LOC: ER 10:44 → MEDS 10:45 → PCU 12-20 14:00 → SURS 12-20 14:00 → MEDS 12-20 14:01 → PCU 12-20 21:13 → SURS 12-25 12:01
PROVIDERS: Internal Medicine; Physician Assistant; ADMIT Family Medicine
DX: A41.9 Sepsis, unspecified organism (principal); J96.21 Acute and chronic respiratory failure with hypoxia; I50.31 Acute diastolic (congestive) heart failure; E87.1 Hypo-osmolality and hyponatremia; I42.8 Other cardiomyopathies; I50.40 Unspecified combined systolic (congestive) and diastolic (congestive) heart failure; R65.20 Severe sepsis without septic shock; Z51.5 Encounter for palliative care; Z99.81 Dependence on supplemental oxygen; R54 Age-related physical debility; F17.210 Nicotine dependence, cigarettes, uncomplicated; J43.9 Emphysema, unspecified; Z66 Do not resuscitate; I16.0 Hypertensive urgency; J20.9 Acute bronchitis, unspecified; M25.559 Pain in unspecified hip; F43.21 Adjustment disorder with depressed mood; I11.0 Hypertensive heart disease with heart failure
CPT/HCPCS: 0099U; 36415; 36600; 71045; 80048; 80053; 80061; 81001; 82550; 82803; 83605; 83735; 83880; 83935; 84145; 84300; 84443; 84484; 85014; 85018; 85025; 87040; 87086; 93005; 93010; 93306; 94640; 94760; 94761; 94762; 96365; 96372; 96375; 96376; 97110; 97162; 97165; 97168; 97530; 97535; 99285-25; A9270; A9270-GY; G0378; J0360; J0456; J0696; J1650; J2060; J2405; J2930; J7030; J7050; J7512; Q0163; U0002